=== PATIENT | female | born 1940 | race Two or more races ===

== ENCOUNTER → 2017-10-08 | Outpatient (CLI) | payer MEDICARE ==
[~2017-10-08] VITALS: Ht 144.8 cm; Wt 53.5 kg
[~2017-10-08] MED LIST: ADENOSINE 45 MG in GIVE UN-DILUTED 0 ML IV ONE; ADENOSINE 90 MG/30 ML INJ IV ONE
== END | disposition home or self-care (01) ==
LOC: Rad HDHVI 09:00
PROVIDERS: ATTEND Internal Medicine Cardiovascular Disease
DX: Z01.818 Encounter for other preprocedural examination (principal); R07.89 Other chest pain; I08.3 Combined rheumatic disorders of mitral, aortic and tricuspid valves; I25.10 Atherosclerotic heart disease of native coronary artery without angina pectoris
CPT/HCPCS: 78452; 93005; 93306; 96374; 96375; A9500; J0153